=== PATIENT | female | born 1995 | race African-American/Black ===

== ENCOUNTER 2018-12-17 08:58 | Emergency (ER) | payer MEDICAID ==
[~2018-12-17] VITALS: Ht 170.2 cm; Wt 73.0 kg
[2018-12-17 10:29] LABS: HEMATOCRIT. 38.5 % (36.0-48.0); HEMOGLOBIN. 13.1 g/dL (12.0-16.0); MEAN CORPUSCULAR VOLUME 85.4 fL (81.0-99.0); MEAN PLATELET VOLUME 7.9 fl (7.4-10.4); PLATELET 418 x1000/uL (130-400); RED BLOOD CELL COUNT 4.51 mill/uL (4.2-5.4); RED CELL DISTRIBUTION WIDTH 14.2 % (11.6-14.6)
[2018-12-17 10:34] LABS: CHLORIDE 106 mEq/L (98-107)
[2018-12-17] MEDS ORDERED: SODIUM CHLORIDE 0.9% 1,000 ML IV ONE (10:48)
[2018-12-17] MEDS ORDERED: KETOROLAC 30MG/ML VIAL IV STA (10:48)
[2018-12-17] MEDS ORDERED: ONDANSETRON HCL 4MG/2ML INJ IV STA (10:48)
[2018-12-17 11:27] LABS: PLATELET ESTIMATE SLIGHTLY INCREASED
[2018-12-17 12:19] LABS: HCG SCREEN NEGATIVE
[2018-12-17 12:44] LABS: CLARITY URINE CLEAR (CLEAR); COLOR URINE YELLOW (YELLOW); KETONES URINE 1+ (NEGATIVE); LEUKOCYTE ESTERASE URINE NEGATIVE (NEGATIVE); NITRITE URINE NEGATIVE (NEGATIVE); OCCULT BLOOD URINE TRACE (NEGATIVE); PH URINE >=9.0 (4.5-8.0); PROTEIN URINE NEGATIVE (NEGATIVE); SPECIFIC GRAVITY URINE 1.016 (1.005-1.030); UROBILINOGEN URINE 0.2 E.U./dL (0.2-1.0)
[2018-12-17 12:54] LABS: METHADONE URINE SCREEN NEGATIVE (NEGATIVE); OPIATES URINE SCREEN NEGATIVE (NEGATIVE)
[2018-12-17 12:55] LABS: *AMPHETAMINES SCREEN URINE NEGATIVE (NEGATIVE); *BARBITURATES SCREEN URINE NEGATIVE (NEGATIVE); *BENZODIAZEPINES SCREEN URINE NEGATIVE (NEGATIVE); *COCAINE SCREEN URINE NEGATIVE (NEGATIVE); PHENCYCLIDINE URINE SCREEN NEGATIVE (NEGATIVE)
[2018-12-17 13:08] LABS: CANNABINOID URINE SCREEN PRESUMTIVE POSITIVE (NEGATIVE)
[2018-12-17] MEDS ORDERED: IOHEXOL-300 100 ML BOTTLE ONE (13:25)
[2018-12-17 14:04] VITALS: BP 125/65
[2018-12-17] MEDS ORDERED: POTASSIUM CHLORIDE 20MEQ TABLET SR PO ONE (14:15)
== END 2018-12-17 14:40 | disposition home or self-care (01) ==
LOC: ER 08:58
DX: M89.8X8 Other specified disorders of bone, other site (principal); R11.10 Vomiting, unspecified; R19.7 Diarrhea, unspecified; M54.5 Low back pain; R10.2 Pelvic and perineal pain; E87.6 Hypokalemia; F12.90 Cannabis use, unspecified, uncomplicated; Z88.6 Allergy status to analgesic agent
CPT/HCPCS: 36415; 74177; 80053; 80305; 81003; 81025; 83690; 84703; 85025; 96361; 96374; 96375; 99284; J1885; J2405; J7030; Q9967; Z7610